=== PATIENT | female | born 1970 | race Two or more races ===

== ENCOUNTER → 2021-09-07 | Outpatient (CLI) | payer SELFPAY ==
--- NOTE | 2021-09-07 12:00 | EMB_PTH ---
PATIENT: JOSEPH SIMPSON LOC: [facility] U#:[id number] AGE/SX: 50/F ROOM: RE09/07/[address]: Dr. Félix Rincon MD : 1970 BED: DIS: 09/07/2021 SPEC #: [id number] RECD: 09/08/21 09:31 STATUS: JULIANE MAGGIE #: [id number] JANAE: 09/07/21 12:[address]: Félix Rincon DEPT: SURGICAL PATHOLOGY RECD BY: Hernán Taylor Tissues: Endometrium, NOS Procedures: Surgery Specimen Level IV HEADER OPERATION: Endometrial biopsy PRE-OP DIAGNOSIS: Abnormal uterine bleeding TISSUE SUBMITTED: Endometrial biopsy MICROSCOPIC DIAGNOSIS Endometrial biopsy: Weakly proliferative endometrium. See comment. ANTOLIN:saranya 09/09/2021 COMMENT Clinical correlation and appropriate follow up are necessary. MICROSCOPIC DESCRIPTION Slides are reviewed. GROSS DESCRIPTION Received in fixative is one container labeled with the patient's name and designated EM biopsy. The specimen consists of multiple fragments of hemorrhagic soft tissue that in aggregate measure 1.5 x 1 x 0.1 cm. The specimen is totally submitted in one cassette. / SJ:saranya 09/08/21 TC:4 CPT: 10546
[2021-09-15 10:01] LABS: HPV APTIMA, High Risk Negative (Negative); HPV Reflexed? YES, CHARGE PATIENT
== END | disposition home or self-care (01) ==
LOC: LABSPEC 09-08 09:23
PROVIDERS: Visit Provider Obstetrics & Gynecology
DX: Z12.4 Encounter for screening for malignant neoplasm of cervix (principal); N93.9 Abnormal uterine and vaginal bleeding, unspecified
CPT/HCPCS: 87624; 88175; 88305; G0145